=== PATIENT | female | born 1960 | race Caucasian/White ===

== ENCOUNTER 2016-08-18 23:53 | Emergency (ER) | payer OTHER ==
[~2016-08-18] VITALS: Ht 167.6 cm; Wt 82.0 kg
[2016-08-18 23:55] VITALS: BP 120/56; PULSE 102; RESP 18; TEMP 98; O2SAT 94
[2016-08-19] MEDS ORDERED: FAMO1TAB37 PO (00:28)
[2016-08-19] MEDS ORDERED: MEDR4PAK PO (00:28)
--- NOTE | 2016-08-19 00:28 | PD ---
HPI Chief Complaint: Allergic/Adverse Reaction Time Seen by Provider: 00:20 Travel History International Travel<30 days: No Contact w/Intl Traveler<30days: No Traveled to known affect area: No History of Present Illness HPI Patient comes in for evaluation of a pruritic rash that began approximately 22 hours ago after applying lotion to her hands and feet. Patient states that the itching and rash began on her hands and feet has since spread over her entire body. Patient states she took Benadryl 1 dose around 4 AM yesterday with minimal to no improvement of her symptoms. Patient denies any airway involvement or sensation of throat closing. Patient states she's been using the same lotion for approximately 6 months with no previous reaction. Patient denies any other known new allergen exposures including but not limited to: Soaps, detergents, furniture, pets, medications, foods, or other chemicals. PFSH Past Medical History Cardiovascular Problems: Yes (HTN) Social History Alcohol Use: No Tobacco Use: Yes Substance Use: No Allergies-Medications (Allergen,Severity, Reaction): Coded Allergies: No Known Allergies (Unverified , 08/19/16) Reported Meds & Prescriptions Reported Meds & Active Scripts Active Pepcid (Famotidine) 20 Mg Tab 20 Mg PO BID 10 Days Medrol Dosepak (Methylprednisolone) 4 Mg Dspk 4 Mg PO DIRECTED Per Pharmacist direction Review of Systems Except as stated in HPI: all other systems reviewed are Neg Physical Exam Narrative GENERAL: Well-developed, overly nourished, in no acute distress, and non-ill appearing. SKIN: Warm and dry. Smooth, blanching rash noted on all 4 extremities and trunk is consistent with an allergic reaction. There is no signs of cellulitis , abscess, folliculitis, necrotizing fasciitis, scabies, or other infectious processes. It is nontender and without crepitus. HEAD: Atraumatic. Normocephalic. EYES: Pupils equal and round. EOMI. No scleral icterus. No injection or drainage. ENT: No nasal bleeding or discharge. Mucous membranes pink and moist. NECK: Trachea midline. No stridor. Supple. No nuclear rigidity. CARDIOVASCULAR: Regular rate and rhythm. No murmur appreciated. RESPIRATORY: No accessory muscle use. No respiratory distress. Clear to auscultation. Breath sounds equal bilaterally. MUSCULOSKELETAL: No obvious deformities. No clubbing. No cyanosis. No edema. Full range of motion. NEUROLOGICAL: Awake and alert. No obvious cranial nerve deficits. Motor grossly within normal limits. Normal speech. PSYCHIATRIC: Appropriate mood and affect; insight and judgment normal. Data Data Last Documented VS Vital Signs Date Time Temp Pulse Resp B/P Pulse Ox O2 Delivery O2 Flow Rate FiO2 08/19/16 00:20 16 99 Room Air 08/18/16 23:55 98.0 102 120/56 Orders Prednisone (Deltasone) (08/19/16 00:30) Famotidine (Pepcid) (08/19/16 00:30) Diphenhydramine (Benadryl) (08/19/16 00:30) [facility] Medical Decision Making Medical Screen Exam Complete: Yes Emergency Medical Condition: Yes Differential Diagnosis Allergic reaction, cellulitis, scabies, other Narrative Course Appears allergic reaction. There is no airway involvement nor difficulty swallowing. Patient looks great. The patient is tolerating fluids. The patient looks great, the findings are minimal and due to non-progression of symptoms here the patient is safe to discharge home. The patient feels comfortable with plan and will return immediately if symptoms begin to worsen. The rash is not consistent with erythema multiforme at this time. The patient is to continue histamine 1 and 2 blockade as well as steroids. The patient was instructed to avoid potential precipitating factor and to follow up with their regular physician for reevaluation and possible definitive allergy testing. The patient agrees with plan. Patient in no obvious distress upon re-evaluation. Patient was asked if they wanted to speak to my attending, which the patient did not wish to do at this time. Any questions/concerns in reference to patient diagnosis/condition discussed and clarified prior to patient's discharge. Reinforced sheer importance of close follow up with patient's primary physician or primary care clinic. Instructed patient to return to ED immediately, if symptoms return/ worsen. Pt showed understanding of above instructions. Further instructions and recommendations were detailed in discharge paperwork. Pt ambulated without difficulty out of ED at discharge. Diagnosis Primary Impression: Allergic reaction Qualified Code: T78.40XA - Allergic reaction, initial encounter Patient Instructions: General Allergic Reaction (ED), General Instructions Additional Instructions: Follow-up with your primary care physician in 2-3 days for reevaluation and possible allergy testing. Take all medication as prescribed. Use over-the- counter Benadryl or Claritin or Zyrtec as needed for symptomatic relief. Follow instructions on the packaging. Avoid using the lotion to prevent worsening and/or recurrence of rash. Return to the emergency department if symptoms get worse. Med/Other Pt SpecificInfo: Prescription(s) given Scripts Famotidine (Pepcid)20 Mg Tab20 Mg PO BID 10 Days Ref 0 Prov:Nas Strickland MD 08/19/16 Methylprednisolone Dosepak (Medrol Dosepak)4 Mg Dspk4 Mg PO DIRECTED #1 DSPK Ref 0 Per Pharmacist direction Prov:Nas Strickland MD 08/19/16 Disposition: 01 DISCHARGE HOME Condition: Stable Mc Hester Aug 19, 2016 00:28
[2016-08-19] MEDS ORDERED: predniSONE 20 MG TAB PO ONE (00:30)
[2016-08-19] MEDS ORDERED: diphenhydrAMINE HCL 25 MG CAP PO ONE (00:30)
[2016-08-19] MEDS ORDERED: FAMOTIDINE 20 MG TAB PO ONE (00:30)
== END 2016-08-19 00:55 | disposition home or self-care (01) ==
LOC: NEPB 23:53
DX: T78.40XA Allergy, unspecified, initial encounter (principal); I10 Essential (primary) hypertension; X58.XXXA Exposure to other specified factors, initial encounter; Z72.0 Tobacco use
CPT/HCPCS: 99283; J7512

== ENCOUNTER 2016-10-26 09:15 | Emergency (ER) | payer OTHER ==
[~2016-10-26] VITALS: Ht 167.6 cm; Wt 81.0 kg
[~2016-10-26 09:15] MED LIST: FAMO1TAB37 PO; MEDR4PAK PO
[2016-10-26 09:17] VITALS: BP 198/98; PULSE 91; RESP 20; TEMP 98.2; O2SAT 99
--- NOTE | 2016-10-26 09:47 | PD ---
HPI Chief Complaint: Abdominal Pain Time Seen by Provider: 09:35 Travel History International Travel<30 days: No Contact w/Intl Traveler<30days: No Traveled to known affect area: No History of Present Illness HPI This is a 55 year old female who presents to the emergency department with left lower quadrant pain for one day, constant, moderate severity, described as achy. She denies any fevers, chills, nausea or vomiting. She says this feels just like when she's had diverticulitis in the past. She says she's had diverticulitis 6 or 7 times before. She's never had a complication from it. She says this feels less severe than it's felt in the past. She denies any vaginal discharge, vaginal bleeding, dysuria or hematuria. She has had some constipation. History Past Medical History Menopausal: Yes Social History Alcohol Use: Yes Tobacco Use: Yes Allergies-Medications (Allergen,Severity, Reaction): Coded Allergies: No Known Allergies (Unverified , 08/19/16) Reported Meds & Prescriptions Reported Meds & Active Scripts Active Pepcid (Famotidine) 20 Mg Tab 20 Mg PO BID 10 Days Medrol Dosepak (Methylprednisolone) 4 Mg Dspk 4 Mg PO DIRECTED Per Pharmacist direction Review of Systems Except as stated in HPI: all other systems reviewed are Neg Physical Exam Narrative GENERAL:Well appearing, no acute distress SKIN: Focused skin assessment warm and dry. HEAD: Atraumatic. Normocephalic. EYES: Pupils equal and round. No injection or drainage. ENT: Moist mucous membranes NECK: Trachea midline. CARDIOVASCULAR: Regular rate and rhythm. No murmur appreciated. RESPIRATORY: Clear to auscultation. Breath sounds equal bilaterally. GASTROINTESTINAL: Abdomen soft, tender to palpation in the left lower quadrant with no rebound or guarding. MUSCULOSKELETAL: No obvious deformities. NEUROLOGICAL: Awake and alert. No obvious cranial nerve deficits. Moving all extremities. PSYCHIATRIC: Appropriate mood and affect; insight and judgment normal. Data Data Last Documented VS Vital Signs Date Time Temp Pulse Resp B/P Pulse Ox O2 Delivery O2 Flow Rate FiO2 10/26/16 09:17 98.2 91 20 198/98 99 MDM Medical Decision Making Medical Screen Exam Complete: Yes Emergency Medical Condition: Yes Interpretation(s) Afebrile, mild tachycardia, hypertensive Differential Diagnosis Diverticulitis, abscess, perforation Narrative Course This is a 55-year-old female who presents to the emergency department with left lower quadrant abdominal pain. She says she's had diverticulitis before and this feels the same. She's had multiple CT scans for this in the past. We had a conversation regarding diagnostic lab work and CT imaging. She is concerned about cost and would like to minimize testing and she says this feels very similar to her prior episodes of diverticulitis. She is nontoxic appearing, her abdominal exam is fairly benign with no peritoneal signs. I think it's reasonable for her to do a trial of oral antibiotic therapy and she promises if she feels worse she'll return to the emergency department at which point we would do more diagnostic studies. Diagnosis Primary Impression: Diverticulitis Qualified Code: K57.92 - Diverticulitis of intestine without bleeding, unspecified complication status, unspecified part of intestinal tract Patient Instructions: General Instructions Additional Instructions: Sometimes patients with diverticulitis require admission to the hospital for IV antibiotics. If you develop worsening or severe abdominal pain, persistent fevers, or inability to drink return to the emergency department. Follow a clear liquid diet for 3 days until you notice your symptoms improving, then slowly advance your diet. Complete your course of antibiotics. Follow up with your primary care physician as soon as possible to ensure you are improving. Med/Other Pt SpecificInfo: Prescription(s) given Scripts Hydrocodone-Acetaminophen (Lortab)5-325 Mg Tab1 Tab PO Q4H PRN (PAIN) #10 TAB Ref 0 Prov:Fidelia Hilario MD 10/26/16 Metronidazole (Flagyl)500 Mg [id number] Mg PO BID 10 Days Prov:Fidelia Hilario MD 10/26/16 Ciprofloxacin 500 Mg [id number] Mg PO BID 10 Days Prov:Fidelia Hilario MD 10/26/16 Disposition: 01 DISCHARGE HOME Condition: Stable Fidelia Hilario MD Oct 26, 2016 09:47
[2016-10-26] MEDS ORDERED: HYDR-3533 PO (09:49)
[2016-10-26] MEDS ORDERED: METR-1 PO (09:49)
[2016-10-26] MEDS ORDERED: CIPR500T2 PO (09:49)
== END 2016-10-26 10:54 | disposition home or self-care (01) ==
LOC: NEPD 09:15
DX: K57.92 Diverticulitis of intestine, part unspecified, without perforation or abscess without bleeding (principal); Z72.0 Tobacco use
CPT/HCPCS: 99284